=== PATIENT | female | born 1995 | race Caucasian/White ===

== ENCOUNTER 2017-01-16 21:08 | Emergency (ER) | payer SELFPAY ==
[~2017-01-16] VITALS: Ht 142.2 cm; Wt 87.1 kg
[2017-01-16] MEDS ORDERED: DIPHENHYDRAMINE 50 MG/ML VIAL ONE (21:46)
[2017-01-16 21:55] LABS: BASO % 0 % (0-3); EOS % 3 % (0-3); HEMATOCRIT 40.5 % (36.0-47.0); HEMOGLOBIN 12.8 g/dL (12.0-15.5); LYMPH # 4.1 x10^3/uL (1.0-4.8); LYMPH % 36 % (24-48); MEAN CORPUSCULAR HEMOGLOBIN 24 pg (25-35); MEAN CORPUSCULAR HGB CONC 32 g/dL (31-37); MEAN CORPUSCULAR VOLUME 77 fL (79-100); MONO % 9 % (0-9); NEUT % 52 % (31-73); PLATELET COUNT 358 x10^3/uL (140-400); RED CELL DISTRIBUTION WIDTH 15.9 % (11.5-14.5); WHITE BLOOD COUNT 11.4 x10^3/uL (4.0-11.0)
--- NOTE | 2017-01-16 21:55 | PHYS DOC ---
Past Medical History Past Medical History: Depression, Other Additional Past Medical Histor: ADHD, HEART MURMUR, TACHYCARDIA Past Surgical History: Tonsillectomy, Other Additional Past Surgical Histo: WISDOM TEETH Alcohol Use: None Drug Use: None Adult General Chief Complaint Chief Complaint: NAUSEA/VOMITING/DIARRHA HPI HPI Patient is a 21 year old female who presents with dizziness, nausea and vomiting. Patient reports she was going down a water slide at [employer] [facility] when she acutely became very dizzy (vertigo, no lightheadedness). She also became very nauseous and started vomiting. No prior similar episodes. She has not taken anything for symptoms. Of note, patient has h/o some cardiac arrhythmia for which she takes a medication starting with "H" (unable to recall name). Review of Systems Review of Systems Constitutional: Denies fever or chills Eyes: Denies change in visual acuity or eye pain HENT: Denies nasal congestion or sore throat Respiratory: Denies cough or shortness of breath Cardiovascular: Chest tightness GI: Nausea/vomiting. Denies abdominal pain, bloody stools or diarrhea : Denies dysuria or hematuria Musculoskeletal: Denies back pain or joint pain Integument: Denies rash or skin lesions Neurologic: Vertigo. Denies headache, focal weakness or sensory changes Current Medications Current Medications Current Medications Medications (Trade) Dose Ordered Sig/Jeffery Start Time Stop Time Status Last Admin Dose Admin Diphenhydramine HCl (Benadryl) 50 mg STK-MED ONCE 01/16/17 21:46 01/16/17 21:47 DC Famotidine (Pepcid) 20 mg 1X ONCE 01/16/17 23:30 01/16/17 23:31 DC 01/16/17 23:11 20 MG Lorazepam (Ativan) 1 mg 1X ONCE 01/16/17 22:30 01/16/17 22:31 DC 01/16/17 22:03 1 MG Ondansetron HCl 4 mg 4 mg 1X ONCE 01/16/17 22:00 01/16/17 22:01 DC 01/16/17 21:56 4 MG Sodium Chloride (Iv Sodium Chloride 0.9% 1000ml Bag) 1,000 ml @ 1,000 mls/hr 1X ONCE 01/16/17 22:00 01/16/17 22:59 DC 01/16/17 21:55 1,000 MLS/HR Allergies Allergies Allergies Coded Allergies Type Severity Reaction Last Updated Verified No Known Drug Allergies 01/16/17 No Physical Exam Physical Exam Constitutional: Well developed, well nourished, non-toxic appearance HENT: Normocephalic, atraumatic, bilateral external ears normal Eyes: PERRL, EOMI, conjunctiva normal, no discharge Neck: Normal range of motion, no stridor Cardiovascular: Heart rate normal, regular rhythm, no murmur Lungs & Thorax: Bilateral breath sounds clear to auscultation Abdomen: Bowel sounds normal, soft, non-distended, no TTP; vomiting Skin: Warm, dry, no erythema, no rash Extremities: No obvious deformity, no edema Neurologic: Alert and oriented X 3, GCS 15, CN II-XII grossly intact with horizontal nystagmus, strength intact and symmetrical throughout, sensation to light touch intact throughout, no dystaxia noted Current Patient Data Vital Signs Vital Signs Date Time Temp Pulse Resp B/P Pulse Ox O2 Delivery O2 Flow Rate FiO2 01/16/17 23:11 95 18 132/71 99 Room Air 01/16/17 21:16 99.1 99.1 Lab Values Laboratory Tests Test 01/16/17 21:40 White Blood Count 11.4x10^3/uL (4.0-11.0) H Red Blood Count 5.30x10^6/uL (3.50-5.40) Hemoglobin 12.8g/dL (12.0-15.5) Hematocrit 40.5% (36.0-47.0) Mean Corpuscular Volume 77fL (79-100) L Mean Corpuscular Hemoglobin 24pg (25-35) L Mean Corpuscular Hemoglobin Concent 32g/dL (31-37) Red Cell Distribution Width 15.9% (11.5-14.5) H Platelet Count 358x10^3/uL (140-400) Neutrophils (%) (Auto) 52% (31-73) Lymphocytes (%) (Auto) 36% (24-48) Monocytes (%) (Auto) 9% (0-9) Eosinophils (%) (Auto) 3% (0-3) Basophils (%) (Auto) 0% (0-3) Neutrophils # (Auto) 6.0x10^3uL (1.8-7.7) Lymphocytes # (Auto) 4.1x10^3/uL (1.0-4.8) Monocytes # (Auto) 1.0x10^3/uL (0.0-1.1) Eosinophils # (Auto) 0.3x10^3/uL (0.0-0.7) Basophils # (Auto) 0.0x10^3/uL (0.0-0.2) Sodium Level 143mmol/L (136-145) Potassium Level 4.3mmol/L (3.5-5.1) Chloride Level 107mmol/L (98-107) Carbon Dioxide Level 24mmol/L (21-32) Anion Gap 12 (6-14) Blood Urea Nitrogen 9mg/dL (7-20) Creatinine 0.7mg/dL (0.6-1.0) Estimated GFR (Cockcroft-Gault) 105.6 Glucose Level 91mg/dL (70-99) Calcium Level 9.5mg/dL (8.5-10.1) Troponin I Quantitative < 0.017ng/mL (0.000-0.055) Serum Test, Qualitative Negative (NEG) Laboratory Tests 01/16/17 21:40 Laboratory Tests 01/16/17 21:40 EKG EKG EKG (my read): sinus rhythm, rate 101, normal axis, intervals wnl, nonspecific ST changes Radiology/Procedures Radiology/Procedures CXR (my read): No acute abnormality Course & Med Decision Making Course & Med Decision Making Pertinent Labs and Imaging studies reviewed. (See chart for details) Patient is 21-year-old female who presents with vertigo and nausea/vomiting after ride down water slide. Apparent benign positional vertigo. Will treat with IV fluids, nausea medication, IV Benadryl (unable to give PO meclizine due to vomiting). EKG, chest x-ray, labs, urine ordered to evaluate. After patient given meds, she had an episode of abnormal facial movements and decreased responsiveness. Patient examined at this time; Poole arm above the patient's head, she would clearly movement to avoid dropping her arm on her face. I discussed with patient's mother, who is in the room and reports patient has long history of similar attention seeking behavior. Patient therefore observed for some period of time after which she return to her normal mental status. Labs largely unremarkable. EKG and imaging results as above. Vomiting resolved after meds. Discussed results with patient and her mother. Patient feeling better and ready to be discharged. Will discharge with prescription for Zofran ODT and meclizine. Given instructions for follow-up and return precautions. Dragon Disclaimer Dragon Disclaimer This electronic medical record was generated, in whole or in part, using a voice recognition dictation system. Departure Departure Impression: Primary Impression: Benign positional vertigo Additional Impression: Nausea & vomiting Disposition: 01 HOME, SELF-CARE Condition: IMPROVED Patient Instructions: Benign Positional Vertigo Additional Instructions: Thank you for allowing us to provide care today in the Emergency Department. Take the provided medication as directed. Use caution when taking the meclizine as it can make you drowsy. Schedule a follow up appointment with your primary care doctor when you return home. Return promptly to the Emergency Department if you develop any new or concerning symptoms. Scripts Meclizine Hcl 25 Mg Tablet1 Tab PO PRN TID PRN vertigo #15 TAB Prov:JERMAINE LANDERS MD 01/16/17 Ondansetron (Zofran Odt)4 Mg Tab.rapdis1 Tab SL Q8HRS PRN NAUSEA #8 TAB Prov:JERMAINE LANDERS MD 01/16/17 Problem Qualifiers JERMAINE LANDERS MD Jan 16, 2017 21:55
[2017-01-16] MEDS ORDERED: LORAZEPAM 2 MG/ML VIAL ONE (21:59)
[2017-01-16] MEDS ORDERED: IV NORMAL SALINE 1000ML BAG 1,000 ML IV ONE (22:00)
[2017-01-16] MEDS ORDERED: DIPHENHYDRAMINE 50 MG/ML VIAL IVP ONE (22:00)
[2017-01-16] MEDS ORDERED: ONDANSETRON PF 4 MG/2 ML VIAL. IV ONE (22:00)
[2017-01-16 22:06] LABS: CALCIUM 9.5 mg/dL (8.5-10.1); CREATININE 0.7 mg/dL (0.6-1.0); GFR 105.6; POTASSIUM 4.3 mmol/L (3.5-5.1)
[2017-01-16] MEDS ORDERED: LORAZEPAM 2 MG/ML VIAL IV ONE (22:30)
[2017-01-16 23:21] LABS: NEG OBC SER NEG; POS OBC SER POS
[2017-01-16] MEDS ORDERED: FAMOTIDINE 20 MG/2 ML VIAL IVP ONE (23:30)
[2017-01-16] MEDS ORDERED: ONDA4TAB10 SL (23:37)
[2017-01-16] MEDS ORDERED: MECL25TA3 PO (23:37)
[2017-01-17 00:04] VITALS: BP 108/65
--- NOTE | 2017-01-17 06:33 | EKG ---
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
--- NOTE | 2017-01-17 08:05 | RAD ---
Portable chest, 01/16/2017: History: Chest discomfort, dizziness The heart size and pulmonary vascularity are normal. No pulmonary infiltrates are seen. There is no evidence of pleural fluid. IMPRESSION: No acute cardiopulmonary abnormality is detected.
== END 2017-01-17 00:07 | disposition home or self-care (01) ==
LOC: ER 21:08
DX: H81.10 Benign paroxysmal vertigo, unspecified ear (principal); R11.2 Nausea with vomiting, unspecified; F32.9 Major depressive disorder, single episode, unspecified; F90.9 Attention-deficit hyperactivity disorder, unspecified type
CPT/HCPCS: 36415; 71010; 80048; 84484; 84703; 85027; 93005; 96361; 96374; 96375; 99285; J1200; J2060; J2405; J7030; S0028